=== PATIENT | male | born 1990 | race Caucasian/White ===

== ENCOUNTER 2016-12-17 19:59 | Emergency (ER) | payer MEDICAID ==
[~2016-12-17] VITALS: Ht 177.8 cm; Wt 76.8 kg
[2016-12-17 20:00] VITALS: BP 121/70
[2016-12-17] MEDS ORDERED: HYDROcodone/APAP 5/325 TABLET ONE (21:48)
[2016-12-17] MEDS ORDERED: CLIN-60 PO (21:52)
[2016-12-17] MEDS ORDERED: HYDROcodone/APAP 5/325 TABLET PO ONE (22:00)
== END 2016-12-17 22:46 | disposition home or self-care (01) ==
LOC: ED 22:40
DX: K08.89 Other specified disorders of teeth and supporting structures (principal)
CPT/HCPCS: 99283